=== PATIENT | female | born 1960 | race Caucasian/White ===

== ENCOUNTER → 2024-01-17 11:15 | Outpatient (REF) | payer OTHER, SELFPAY | LOC: RAD 11:15 | PROVIDERS: ATTENDING PHYSICIAN Family Medicine | DX: M85.88 Other specified disorders of bone density and structure, other site (principal) | CPT/HCPCS: 77080 ==

== ENCOUNTER → 2024-01-26 10:42 | Outpatient (REF) | payer OTHER, SELFPAY | LOC: WDC 10:42 | PROVIDERS: ATTENDING PHYSICIAN Obstetrics & Gynecology | DX: R92.2 Inconclusive mammogram (principal) | CPT/HCPCS: 76641 ==

== ENCOUNTER → 2024-02-21 15:04 | Outpatient (REF) | payer OTHER, SELFPAY | LOC: RCS 15:04 | PROVIDERS: ATTENDING PHYSICIAN Internal Medicine; FAMILY PHYSICIAN Family Medicine | DX: I49.3 Ventricular premature depolarization (principal); R00.2 Palpitations; R42 Dizziness and giddiness | CPT/HCPCS: 93017 ==

== ENCOUNTER → 2024-03-02 11:16 | Outpatient (REF) | payer OTHER, SELFPAY | LOC: HWRCS 11:16 | PROVIDERS: ATTENDING PHYSICIAN Internal Medicine; FAMILY PHYSICIAN Family Medicine | DX: I49.3 Ventricular premature depolarization (principal); R00.2 Palpitations; R42 Dizziness and giddiness | CPT/HCPCS: 93306 ==

== ENCOUNTER → 2024-08-15 13:46 | Outpatient (REF) | payer OTHER, SELFPAY | LOC: WDC 13:46 | PROVIDERS: ATTENDING PHYSICIAN Obstetrics & Gynecology; FAMILY PHYSICIAN Family Medicine | DX: R92.8 Other abnormal and inconclusive findings on diagnostic imaging of breast (principal) | CPT/HCPCS: 76642 ==

== ENCOUNTER → 2024-10-07 11:21 | Outpatient (REF) | payer OTHER, SELFPAY | LOC: RAD 11:21 | PROVIDERS: ATTENDING PHYSICIAN Family Medicine | DX: M25.431 Effusion, right wrist (principal) | CPT/HCPCS: 73110 ==

== ENCOUNTER → 2024-11-11 07:55 | Outpatient (REF) | payer OTHER, SELFPAY | LOC: WDC 07:55 | PROVIDERS: ATTENDING PHYSICIAN Obstetrics & Gynecology; FAMILY PHYSICIAN Family Medicine | DX: Z12.31 Encounter for screening mammogram for malignant neoplasm of breast (principal) | CPT/HCPCS: 77063; 77067 ==

== ENCOUNTER 2025-02-04 09:51 | Emergency (ER) | payer OTHER, SELFPAY ==
[2025-02-04 09:55] VITALS: BP 141/78
[2025-02-04 10:39] VITALS: BMI 23.3
--- NOTE | 2025-02-04 10:53 | ED.GENMED ---
History of Present Illness
General
Chief Complaint: Skin Problem
Time Seen by Provider: 02/04/25 10:25
History of Present Illness
History of Present Illness:
64-year-old female presents the emergency department for evaluation of redness and pain into the right lower face beginning yesterday. She was started on Bactrim and has taken 3 doses thus far but the symptoms are worsening. Notes that she has had
several similar outbreaks to the neck and right hand over the past several months of uncertain cause. No known history of MRSA
Past History
Past History
ED Past Medical History: GERD
ED Past Surgical History: Orthopedic
Social History
Tobacco: Non-smoker
Alcohol: Occasional
Drug: None
Personal:
Living: with family
Employment: Employed
Review of Systems
Review of Systems
Allergies reviewed?: Yes
All Other Systems: ROS reviewed and negative except as documented in HPI and ROS
Phy Exam
Physical Exam
Physical Exam:
GEN: Well appearing, NAD, WDWN
HEENT: Oral mucosa moist, no scleral icterus. Focal area of erythema and induration to the right jaw extending toward the angle of the mandible. There is no trismus and oropharynx is clear, no intraoral lesions.
Cardiac: Regular rate
Lung: No respiratory distress, no tachypnea
MSK: No gross deformity or injuries
Skin: Good color, no pallor or jaundice, no rashes
Neuro: AO x3, moves all extremities freely
Psych: Calm, cooperative
Course
Orders/Labs/Results
Orders:
Orders
02/04/25 11:08
Wound Culture [Wound/Abscess/Other Culture] Urgent
CHELSEY Source: Face
Specimen Description: Right
Date Specimen was Collected: 02/04/25
Time Specimen was Collected: 11:06
Vital Signs
Initial and Last Documented VS:
Initial Vital Signs
Temp Pulse Resp BP Pulse Ox
98.7 F 97 16 141/78 100
02/04/25 09:55 02/04/25 09:55 02/04/25 09:55 02/04/25 09:55 02/04/25 09:55
Last Documented Vital Signs
Temp Pulse Resp BP Pulse Ox
98.7 F 97 16 141/78 100
02/04/25 09:55 02/04/25 09:55 02/04/25 09:55 02/04/25 09:55 02/04/25 09:55
MDM/Problems Addressed
MDM/Problems Addressed:
The area was anesthetized with 1% lidocaine with epinephrine, at first an aspiration attempt was made however ultimately a small incision was made over the focal area of induration with scant purulent discharge. A deep culture from the wound base
was sent. Will maintain Bactrim for the time being, hopeful that decompression with incision will help improve healing time
*Critical Care Note
Total Time (30-74mins, 75-104mins- exclusive of procedures): Not Applicable
ED Attending Note
-
Portions of this chart may have been created with voice recognition software.� Occasional wrong word or��sound alike� substitutions may have occurred due to the inherent limitations of voice recognition software.
Discharge Plan
Departure
Patient Disposition: Home (Routine Discharge)
Date of Disposition: 02/04/25
Time of Disposition: 10:54
Patient with high blood pressure during this ER visit?: No
Discharge Problem:
Furuncle of face
Instructions: Skin Abscess
Prescriptions:
New
chlorhexidine gluconate 4 % liquid
1 applic topical DAILY Qty: 473 0RF
Rx Instructions:
Use as body wash daily for 14 days
Activity Restrictions/Additional Instructions:
Return if you develop a fever, neck pain, or difficulty swallowing, OR if your symptoms do not improve in 48 hours
Interventions
Interventions:
*Risk Screen - Suicide Last Done: 02/04/25 09:57
*General Assessment Last Done: 02/04/25 11:13
*Neglect/Abuse Screening Last Done: 02/04/25 09:57
*ED- Fall Risk Assessment Last Done: 02/04/25 10:41
*ED COVID-19 Vaccine History Last Done: 02/04/25 10:41
*Nursing Disposition Last Done: 02/04/25 11:14
ED-Skin Assessment Last Done: 02/04/25 10:42
Discharge Date and Time
Discharge Date/Time: 02/04/25 11:14
Print Language: LITHUANIAN
== END 2025-02-04 11:14 | disposition home or self-care (01) ==
LOC: EMR 09:51
PROVIDERS: EMERGENCY PHYSICIAN Emergency Medicine; FAMILY PHYSICIAN Family Medicine
DX: L02.02 Furuncle of face (principal)
CPT/HCPCS: 99283; 87070; 87147; 87186; 87205

== ENCOUNTER → 2025-02-27 08:51 | Outpatient (REF) | payer OTHER, SELFPAY | LOC: WDC 08:51 | PROVIDERS: ATTENDING PHYSICIAN Obstetrics & Gynecology; FAMILY PHYSICIAN Family Medicine | DX: R92.2 Inconclusive mammogram (principal) | CPT/HCPCS: 76641 ==

== ENCOUNTER 2025-07-29 12:34 | Emergency (ER) | payer OTHER, SELFPAY ==
[2025-07-29 12:41] VITALS: BP 119/63
--- NOTE | 2025-07-29 14:21 | ED.GENMED ---
History of Present Illness
General
Chief Complaint: Fall
Source: patient
Exam Limitations: none
Time Seen by Provider: 07/29/25 13:06
Nursing documentation reviewed up to this point in time: agreed with
History of Present Illness
History of Present Illness:
see MDM
Past History
Past History
ED Past Medical History: GERD
ED Past Surgical History: Orthopedic
Social History
Tobacco: Non-smoker
Alcohol: Occasional
Drug: None
Personal:
Living: with family
Employment: Employed
Phy Exam
Physical Exam
Physical Exam:
See MDM
Course
Orders/Labs/Results
Orders:
Orders
07/29/25 12:44
Forearm, Right 2 View [CR Forearm - Right 2 View] Urgent
Comment:
Reason For Exam: fall
07/29/25 13:36
CR Wrist - Right Min 3 Views Urgent
Comment:
Reason For Exam: concern for radius fx
Vital Signs
Initial and Last Documented VS:
Initial Vital Signs
Temp Pulse Resp BP Pulse Ox
36.6 C 63 16 119/63 98
07/29/25 12:41 07/29/25 12:41 07/29/25 12:41 07/29/25 12:41 07/29/25 12:41
Last Documented Vital Signs
Temp Pulse Resp BP Pulse Ox
36.6 C 63 16 119/63 98
07/29/25 12:41 07/29/25 12:41 07/29/25 12:41 07/29/25 12:41 07/29/25 14:31
MDM/Problems Addressed
Differential Diagnosis Includes:
See MDM
MDM/Problems Addressed:
Note:
CHIEF COMPLAINT(S)
Fall from a chair with arm and wrist pain.
HISTORY OF PRESENT ILLNESS
The patient is a 65-year-old female who presented following a fall from a chair that occurred yesterday morning around 5 AM. She reported that she unexpectedly fell forward, landing on her outstretched hand. This caused immediate pain in her arm.
She did not initially seek medical attention but contacted her family doctor later. The patient has taken ibuprofen for pain relief. She reports tenderness when pressure is applied to the area of the forearm and wrist. The radiologist reported
swelling but no clear fracture. However, visualization of the wrist was suboptimal, and a dedicated wrist X-ray is considered for further evaluation.
MEDICATIONS
Blood pressure medication (specific medication not specified).
PHYSICAL EXAM
GENERAL: Alert , in no apparent distress, comfortable at rest
HEAD: NCAT
CV: 2+ DP PULSES B/L
NEUROLOGICAL: Alert and oriented, no focal neuro deficits, , 5/5 strength, sensation intact, ambulation slight limp right leg
SKIN: Warm and dry, moderate bruising to the right volar and dorsal forearm and into the wrist
MUSCULOSKELETAL: Soft tissue swelling seen on the right forearm midway down to the wrist with tenderness at the scaphoid and the distal right radius, is able to flex and extend but has pain with ulnar deviation
Neurovascularly intact, elbow is normal
PSYCH: Normal and appropriate interaction.
- Vital signs reviewed.
PLAN
1. Obtain a dedicated wrist X-ray for better visualization.
2. If the X-ray is negative, consider providing a forearm brace to restrict movement for a few days.
DIFFERENTIAL DIAGNOSIS
The Differential Diagnosis includes, in no particular order and is not limited to:
1. Wrist fracture
2. Forearm contusion
3. Wrist sprain
4. Tendon injury
5. Ligamentous injury
6. Soft tissue injury
7. Hematoma
8. Osteoporosis-related fracture
9. Radial head fracture
10. Distal radius fracture
65-year-old [id number] female says that she had a mechanical fall off a chair yesterday and landed on an outstretched right wrist with pain and swelling and bruising to the right distal forearm. Patient says that she actually did not have
this much bruising and swelling last night but got worse this morning. She took some ibuprofen last night and declined any pain medication here. She is not having any numbness tingling weakness, elbow pain, she had no head or neck injury. On exam
she has soft tissue swelling with bruising and tenderness at the distal radius. Initially the RN placed an order for forearm x-ray which was read by the radiologist as negative but I was concerned about a subtle lucency at the distal radius.
Obtained a dedicated wrist x-ray showing a nondisplaced fracture to the distal radius. Patient will be placed in a volar Velcro wrist splint for follow-up with orthopedics
*Pulse Oximetry
SaO2: 98
Oxygen Mode of Delivery: Room air
Patient hypoxic: no (98)
*Critical Care Note
Total Time (30-74mins, 75-104mins- exclusive of procedures): Not Applicable
ED Attending Note
-
Portions of this chart may have been created with voice recognition software.� Occasional wrong word or��sound alike� substitutions may have occurred due to the inherent limitations of voice recognition software.
Discharge Plan
Departure
Patient Disposition: Home (Routine Discharge)
Date of Disposition: 07/29/25
Time of Disposition: 14:27
Patient with high blood pressure during this ER visit?: No
Condition: Fair
Covid-19: Not Applicable
Discharge Problem:
Distal radius fracture, right
Instructions: Wrist fracture
Prescriptions:
No Action
chlorhexidine gluconate 4 % liquid
1 applic topical DAILY Qty: 473 0RF
Rx Instructions:
Use as body wash daily for 14 days
Referrals:
Stephanie Virk DO [Family Provider, Family Practice]
Anthony Harris MD [Active, Orthopedics] - Follow up in 5-7 days
Activity Restrictions/Additional Instructions:
You broke your distal radius. It is nondisplaced and it should heal without surgery. Wear the wrist splint until you follow-up with orthopedics.
Take Tylenol and ibuprofen for pain. You can apply ice off-and-on. Return for any numbness tingling or weakness, color change, cold hand or any concerns.
Interventions
Interventions:
*Risk Screen - Suicide Last Done: 07/29/25 12:41
*General Assessment Last Done: 07/29/25 14:48
*Neglect/Abuse Screening Last Done: 07/29/25 12:41
*ED- Fall Risk Assessment Last Done: 07/29/25 14:48
*ED COVID-19 Vaccine History Last Done: 07/29/25 14:48
*ED Influenza Vaccine History Last Done: 07/29/25 14:48
*Nursing Disposition Last Done: 07/29/25 14:48
ED-Musculoskeletal Assessment Last Done: 07/29/25 14:48
ED- Neurological Assessment Last Done: 07/29/25 14:48
ED-Skin Assessment Last Done: 07/29/25 14:48
Discharge Date and Time
Discharge Date/Time: 07/29/25 14:48
Print Language: QATARI
== END 2025-07-29 14:48 | disposition home or self-care (01) ==
LOC: EMR 12:34
PROVIDERS: EMERGENCY PHYSICIAN Emergency Medicine; FAMILY PHYSICIAN Family Medicine
DX: S52.571A Other intraarticular fracture of lower end of right radius, initial encounter for closed fracture (principal); S50.11XA Contusion of right forearm, initial encounter; W07.XXXA Fall from chair, initial encounter
CPT/HCPCS: 29125; 99283; 73090; 73110

== ENCOUNTER → 2025-09-18 14:16 | Outpatient (REF) | payer OTHER, SELFPAY | LOC: RCS 14:16 | PROVIDERS: ATTENDING PHYSICIAN Internal Medicine; FAMILY PHYSICIAN Family Medicine | DX: Z01.810 Encounter for preprocedural cardiovascular examination (principal); I49.3 Ventricular premature depolarization; I10 Essential (primary) hypertension; I34.0 Nonrheumatic mitral (valve) insufficiency | CPT/HCPCS: 93017; 93350 ==

== ENCOUNTER 2025-09-27 06:28 | Day surgery (SDC) | payer OTHER, SELFPAY ==
[2025-09-27 10:51] VITALS: BMI 23.4
[2025-09-27 10:55] VITALS: BP 116/89
[2025-09-27] MEDS: CELEBREX 200 MG PO (10:58)
[2025-09-27] MEDS: TYLENOL 1000 MG PO (10:58)
[2025-09-27] MEDS: NORMOSOL-R/PLASMALYTE-A 1000 IV (11:05)
[2025-09-27 12:11] VITALS: BP 102/68
[2025-09-27 12:15] VITALS: BP 104/73
[2025-09-27 12:30] VITALS: BP 106/69
[2025-09-27 12:45] VITALS: BP 101/74
== END 2025-09-27 13:03 | disposition home or self-care (01) ==
LOC: SDS 06:28
PROVIDERS: ATTENDING PHYSICIAN Student in an Organized Health Care Education/Training Program
DX: G57.61 Lesion of plantar nerve, right lower limb (principal)
CPT/HCPCS: 64782; 64787; 88304